=== PATIENT | male | born 1990 | race Caucasian/White ===

== ENCOUNTER 2020-11-05 13:46 | Outpatient (CLI) | payer OTHER ==
[2020-11-05] MEDS ORDERED: Sodium Bicarbonate 2.5 MEQ/5 ML VIAL ONE (14:08)
[2020-11-05] MEDS ORDERED: EPINEPHrine 1 MG/ML AMP ONE (14:08)
[2020-11-05] MEDS ORDERED: Lidocaine 1% PF 5 ML VIAL ONE (14:08)
== END 2020-11-05 13:47 | disposition home or self-care (01) ==
LOC: CSHRAD 13:46
PROVIDERS: ATTEND Surgery Surgery of the Hand
DX: S63.592A Other specified sprain of left wrist, initial encounter (principal)
CPT/HCPCS: 25246; J0171